=== PATIENT | female | born 1955 | race Caucasian/White ===

== ENCOUNTER 2024-04-17 10:11 | Emergency (ER) | payer BC, SELFPAY ==
[2024-04-17] VITALS (14 sets, daily range): BP systolic 119–202; BP diastolic 61–80; PULSE 61–83; RESP 16–22; TEMP 36.4–37.1; O2SAT 93–100; BMI 24.4
[2024-04-17] MEDS: ONDANSETRON 4 MG/2 ML INJ IV ×2 (10:45→12:32)
[2024-04-17] MEDS: SODIUM CHLORIDE 0.9% 1,000 ML 1000 ML IV (10:48)
[2024-04-17 10:57] LABS: Add Manual Diff / Slide Review NO; Basophils Absolute Auto 100 /uL (0-100); Basophils Percent Auto 0.5 % (0-2); Eosinophils Absolute Auto 100 /uL (0-450); Eosinophils Percent Auto 0.3 % (2-4); Hematocrit 44.1 % (36-46); Hemoglobin 14.3 g/dL (12.0-16.0); Lymphocytes Absolute Auto 1400 /uL (1100-4500); Lymphocytes Percent Auto 6.2 % (25-40); Mean Corpuscular HGB Conc 32.5 % (30-36); Mean Corpuscular Hemoglobin 30.4 PG (26-34); Mean Corpuscular Volume 93.5 fL (80-100); Monocytes Absolute Auto 700 /uL (0-900); Monocytes Percent Auto 3.2 % (3-14); Neutrophils Absolute Auto 19700 /uL (1500-7000); Neutrophils Percent Auto 89.8 % (50-75); Platelet Count 403 X10^3/uL (150-400); Red Blood Cell Count 4.72 X10^6/uL (4.0-5.2); Red Cell Distribution Width 14.2 % (11.6-14.8); White Blood Cell Count 21.9 X10^3/uL (4.5-11.0)
--- NOTE | 2024-04-17 10:59 | ED_ITS ---
HPI - Nausea/Vomiting/Diarrhea General Chief complaint: Nausea/Vomiting/Diarrhea Stated complaint: nausea, dry heaving Time Seen by Provider: 04/17/24 10:29 Source: patient Mode of arrival: Ambulatory Limitations: no limitations History of Present Illness HPI Narrative: Patient is a 68-year-old female. Has a history of Pinzon's esophagus. Also has a history of chronic diarrhea. Was recently started on Levaquin for urinary tract infection. [place]. Is here for evaluation of vomiting that occurred this morning. She also now has diarrhea that started this morning. She states she was had a history of this approximately 4 years ago. She states that she was told that it was her Pinzon's esophagus that caused the symptoms. No fevers. No chest pain or shortness of breath. Related Data Previous Rx's Medication Instructions Recorded lorazepam 0.5 mg tablet (Ativan) 0.5 mg PO TID PRN nausea and 04/17/24 vomiting #6 tabs ondansetron 4 mg disintegrating 4 mg PO Q6H PRN nausea and 04/17/24 tablet vomiting #10 tabs Allergies Allergy/AdvReac Type Severity Reaction Status Date / Time No Known Drug Allergies Allergy Verified 04/17/24 10:39 Review of Systems Review of Systems ROS Unobtainable: All systems reviewed & are unremarkable except as noted in HPI and below Patient History Social History Smoking Status: Never smoker Smoking Status: Never smoker alcohol intake frequency: a few times a week Alcohol type: wine Substance Use Type: does not use Exam Initial Vital Signs Initial Vital Signs: Vital Signs Respiratory Rate 18 04/17/24 10:22 Blood Pressure 119/69 04/17/24 10:22 Const General: cooperative and No ill appearing [facility] Head: normal to inspection and normocephalic Resp Effort & Inspection: normal respiratory effort Cardio Rate: regular rate GI Inspection: non-distended Palpation: No firm, No guarding and No rigid Skin General: no rashes or lesions noted Neuro General: patient alert and patient awake Course Orders Ordered: ED Orders 04/17/24 10:38 GI Panel (Film Array) Stat 04/17/24 10:49 Complete Blood Count AUTO DIFF Stat Comprehensive Metabolic Panel Stat Lipase Stat Discontinued Medications Sodium Chloride (Normal Saline 0.9%) 1,000 mls @ 1,000 mls/hr IV BOLUS ONE Stop: 04/17/24 11:44 Last Infusion: 04/17/24 12:04 Dose: Infused Documented By: Admin: 04/17/24 10:48 Dose: 1,000 mls/hr Documented By: ISABELLE Lorazepam (Lorazepam 2 Mg/Ml Inj) 1 mg IV NOW ONE Stop: 04/17/24 12:36 Last Admin: 04/17/24 12:40 Dose: 1 mg Documented By: MAHI Metoclopramide HCl (Metoclopramide 10 Mg/2 Ml Inj) 10 mg IV NOW ONE Stop: 04/17/24 11:47 Last Admin: 04/17/24 11:50 Dose: 10 mg Documented By: YEYO Ondansetron HCl (Ondansetron 4 Mg/2 Ml Inj) 4 mg IV NOW ONE Stop: 04/17/24 10:32 Last Admin: 04/17/24 10:45 Dose: 4 mg Documented By: MAHI Ondansetron HCl (Ondansetron 4 Mg Odt) 4 mg SL NOW ONE Stop: 04/17/24 10:47 Last Admin: 04/17/24 13:36 Dose: Not Given Documented By: AYUSH Ondansetron HCl (Ondansetron 4 Mg/2 Ml Inj) 4 mg IV NOW ONE Stop: 04/17/24 12:16 Last Admin: 04/17/24 12:32 Dose: 4 mg Documented By: MAHI Pantoprazole Sodium (Pantoprazole 40 Mg Vial) 20 mg IV NOW ONE Stop: 04/17/24 10:57 Last Admin: 04/17/24 11:02 Dose: 20 mg Documented By: MAHI Vital Signs Vital signs: Vital Signs - 8 hr 04/17/24 10:22 04/17/24 10:23 04/17/24 10:28 Temperature 97.6 F Pulse Rate 71 78 Respiratory Rate 18 16 Blood Pressure 119/69 120/61 Pulse Oximetry 99 98 Oxygen Delivery Method Room Air 04/17/24 10:30 04/17/24 10:30 04/17/24 11:00 Temperature Pulse Rate 83 61 Respiratory Rate 20 Blood Pressure 120/61 Pulse Oximetry 97 100 Oxygen Delivery Method 04/17/24 11:30 04/17/24 11:31 04/17/24 11:31 Temperature Pulse Rate 71 70 Respiratory Rate Blood Pressure 186/79 H Pulse Oximetry 99 100 Oxygen Delivery Method 04/17/24 12:00 04/17/24 12:00 04/17/24 12:30 Temperature Pulse Rate 77 Respiratory Rate Blood Pressure 202/80 H 183/79 H Pulse Oximetry 99 Oxygen Delivery Method 04/17/24 12:30 04/17/24 13:00 04/17/24 13:01 Temperature Pulse Rate 75 77 76 Respiratory Rate 22 22 Blood Pressure Pulse Oximetry 99 93 94 Oxygen Delivery Method 04/17/24 13:01 04/17/24 13:30 04/17/24 13:30 Temperature Pulse Rate 79 Respiratory Rate 21 Blood Pressure 140/65 133/62 Pulse Oximetry 94 Oxygen Delivery Method 04/17/24 14:00 04/17/24 14:00 Temperature Pulse Rate 74 Respiratory Rate 20 Blood Pressure 138/62 Pulse Oximetry 95 Oxygen Delivery Method MDM - Nausea/Vomiting/Diarrhea Lab Data Attestation: I reviewed the patient's lab results. 04/17/24 10:49 04/17/24 10:49 Labs: Lab Results 04/17/24 04/17/24 Range/Units 10:38 10:49 WBC 21.9 H (4.5-11.0) X10^3/uL RBC 4.72 (4.0-5.2) X10^6/uL Hgb 14.3 (12.0-16.0) g/dL Hct 44.1 (36-46) % MCV 93.5 (80-100) fL MCH 30.4 (26-34) PG MCHC 32.5 (30-36) % RDW 14.2 (11.6-14.8) % Plt Count 403 H (150-400) X10^3/uL Neut % (Auto) 89.8 H (50-75) % Lymph % (Auto) 6.2 L (25-40) % [place] % (Auto) 3.2 (3-14) % Eos % (Auto) 0.3 L (2-4) % Baso % (Auto) 0.5 (0-2) % Neut # (Auto) 29966 H (1436-5138) /uL Lymph # (Auto) 1400 (6821-9769) /uL [place] # (Auto) 700 (0-900) /uL Eos # (Auto) 100 (0-450) /uL Baso # (Auto) 100 (0-100) /uL Sodium 142 (137-145) mmol/L Potassium 4.3 (3.4-5.1) mmol/L Chloride 112 H (98-107) mmol/L Carbon Dioxide 16 L (22-32) mmol/L BUN 20 H (7-17) mg/dL Creatinine 1.23 H (0.52-1.04) mg/dL Estimated GFR 48 L (>60) mL/min BUN/Creatinine Ratio 16.3 (6-22) Glucose 208 H (80-110) mg/dL Calcium 10.3 H (8.4-10.2) mg/dL Total Bilirubin 0.6 (0.2-1.3) mg/dL AST 34 (14-36) IU/L ALT 29 (<35) IU/L Alkaline Phosphatase 87 (38-126) U/L Total Protein 8.0 (6.3-8.2) g/dL Albumin 4.8 (3.5-5.0) g/dL Globulin 3.2 (1.7-4.1) g/dL Albumin/Globulin Ratio 1.5 (1.0-2.8) Lipase 187 (23-300) U/L Stl C. cayetanensis PCR Not detected (Not Detect) Stool Rotavirus (PCR) Not detected (Not Detect) Stool Adenovirus (PCR) Not detected (Not Detect) Stool Astrovirus (PCR) Not detected (Not Detect) Stool Cryptosporidium PCR Not detected (Not Detect) Stl E.coli Shiga Tox PCR Not detected (Not Detect) St Sh/Enteroin Ecoli PCR Not detected (Not Detect) Stl Enterotoxigenic E PCR Not detected (Not Detect) Stool EPEC (PCR) Not detected (Not Detect) Stl E. histolytica PCR Not detected (Not Detect) Stool Giardia Lamblia PCR Not detected (Not Detect) Stool Sapovirus (PCR) Not detected (Not Detect) Stl P. shigelloides PCR Not detected (Not Detect) St Y.enterocolitica PCR Not detected (Not Detect) Stool Vibrio (PCR) Not detected (Not Detect) Stl Vibrio cholerae PCR Not detected (Not Detect) Stl Enteroaggr Ecoli PCR Not detected (Not Detect) Stl Norovirus GI/GII PCR Detected (Not Detect) Campylobacter (PCR) Not detected (Not Detect) C. difficile Tox (PCR) Not detected (Not Detect) Salmonella (PCR) Not detected (Not Detect) MDM Narrative Medical decision making narrative: Patient with significant vomiting/retching upon arrival. Has a leukocytosis of 21 however I suspect that this is because of the norovirus and also stress reaction from all of the vomiting. He was given Zofran which did seem to help her symptoms somewhat but then it returned. Was given Reglan which really did not help all that much. Another dose of Zofran was administered and then eventually Ativan. The Ativan seemed to be the best help for her symptoms. She was now able to tolerate oral intake. There was no indication for antibiotics. Was sent home with a prescription for Zofran and also Ativan. Given return precautions and follow-up instructions. She expressed understanding and agreement with plan. Discharge Plan Departure Patient Disposition: Home Clinical Impression: Nausea, Vomiting, and Diarrhea, Norovirus Instructions: Nausea and Vomiting-Adult, DI for Norovirus Infection Activity Restrictions/Additional Instructions: I do recommend that you continue to take all of your medications as directed. Use the ondansetron/Zofran as needed as 1st line for your nausea. If this is not working you can switch to the lorazepam/Ativan. Remember that this medication can make you somewhat drowsy. Recommend a bland diet. Try to increase her fluid intake. Return to the emergency department for new or worsening symptoms. Prescriptions: New ondansetron 4 mg tablet,disintegrating 4 mg PO Q6H PRN (Reason: nausea and vomiting) Qty: 10 0RF lorazepam [Ativan] 0.5 mg tablet 0.5 mg PO TID PRN (Reason: nausea and vomiting) Qty: 6 0RF Referrals: Miscellaneous,Doctor, MD [Primary Care Provider] - Stand Alone Forms: Patient Portal/API/Survey
[2024-04-17] MEDS: PANTOPRAZOLE 40 MG VIAL 20 MG IV (11:02)
[2024-04-17 11:11] LABS: Alanine Aminotransferase 29 IU/L (<35); Albumin 4.8 g/dL (3.5-5.0); Albumin Globulin Ratio 1.5 (1.0-2.8); Alkaline Phosphatase 87 U/L (38-126); Aspartate Aminotransferase 34 IU/L (14-36); BUN Creatinine Ratio 16.3 (6-22); Bilirubin Total 0.6 mg/dL (0.2-1.3); Blood Urea Nitrogen 20 mg/dL (7-17); Calcium 10.3 mg/dL (8.4-10.2); Carbon Dioxide 16 mmol/L (22-32); Chloride 112 mmol/L (98-107); Estimated Glomerular Filt Rate 48 mL/min (>60); Globulin 3.2 g/dL (1.7-4.1); Glucose 208 mg/dL (80-110); HEMOLYSIS < 15 (0-50); Lipase 187 U/L (23-300); Potassium 4.3 mmol/L (3.4-5.1); Sodium 142 mmol/L (137-145)
[2024-04-17] MEDS: METOCLOPRAMIDE 10 MG/2 ML INJ IV (11:50)
[2024-04-17 12:23] LABS: Adenovirus F 40/41 Not Detected (Not Detect); Astrovirus Not Detected (Not Detect); Campylobacter Not Detected (Not Detect); Clostridium difficile toxin AB Not Detected (Not Detect); Cryptosporidium Not Detected (Not Detect); Cyclospora cayetanensis Not Detected (Not Detect); Entamoeba histolytica Not Detected (Not Detect); Enteroaggregative E.coli Not Detected (Not Detect); Enteropathogenic E.coli Not Detected (Not Detect); Enterotoxigenic E.coli It/st Not Detected (Not Detect); Giardia lamblia Not Detected (Not Detect); Norovirus GI/GII Detected (Not Detect); Plesiomonsa shigelloides Not Detected (Not Detect); Rotavirus A Not Detected (Not Detect); Salmonella Not Detected (Not Detect); Sapovirus Not Detected (Not Detect); Shiga-like toxin-prod E.coli Not Detected (Not Detect); Shigella/Enteroinvasive E.coli Not Detected (Not Detect); Vibrio Not Detected (Not Detect); Vibrio cholerae Not Detected (Not Detect); Yersinia enterocolitica Not Detected (Not Detect)
[2024-04-17] MEDS: LORazepam 2 MG/ML INJ 1 MG IV (12:40)
--- NOTE | 2024-04-17 14:15 | PC.NURSE ---
See triage for further. Pt denies sick contacts. Pt reports she is suppose to fly home to [place] tomorrow.
== END 2024-04-17 14:27 | disposition home or self-care (01) ==
PROVIDERS: Emergency Provider Emergency Medicine
DX: A08.11 Acute gastroenteropathy due to Norwalk agent (principal); R11.2 Nausea with vomiting, unspecified; R19.7 Diarrhea, unspecified
CPT/HCPCS: 80053; 83690; 85025; 87507; 96361; 96374; 96375; 96376; 99283; 99284; J2060; J2405; J2470; J2765